=== PATIENT | male | born 1935 | race Caucasian/White ===

== ENCOUNTER 2019-05-17 20:47 | Observation (INO) ==
--- NOTE | 2019-05-17 20:59 | Emergency Department Note ---
Disposition Clinical Impression: Elevated creatine kinase, Tachycardia Disposition: Home, Self-Care Condition: Good Instructions: Hypotension (ED) Referrals: NONE,PCP [Primary Care Provider] - Time of Disposition: 22:22 General Adult HPI - General Stated complaint: Low BP/Rhabdo? Time Seen by Provider: 05/17/19 20:58 Source: patient Mode of arrival: ambulatory Limitations: no limitations Nursing Notes Reviewed: Yes Vital Signs Reviewed: Yes - History of Present Illness HPI Narrative: Male patient presenting to emergency department complaining of a generalized weakness and hypotension at home. He was noted to be in the 80s systolic at home per the son. Patient states he is otherwise feeling weak. He has no other complaints. Patient does have a history of an TX with no stents placed however he also has a history of DVT with 2 IVC filters, And a bleeding gastric ulcer that he underwent an open laparoscopy to fix several years ago. He is not cu rrently on blood thinners. He reports no other significant past history other than hypertension that he takes blood pressure medication for only if his systolic numbers greater than 110. He does not take this frequently. He reportedly once or twice a month. States the last time was several days ago. Patient reports no history of atrial fibrillation however on the telemetry strip in the room he does appear to have frequent episodes of ectopic beats with an underlying sinus rhythm. Patient denies any chest pain. Denies any shortness of breath. Denies any feelings of palpitations. He denies any actual syncope. Of note last night middle the night he states he did slide out of his bed. He states he did not fall out of his bed he did gradually slide to the floor. He then laid on the carpet went back to sleep. He was able to get himself up this morning and was going about his normal business whenever his son was talking to them and the patient brought up that he did sleep in the floor last night. - Related Data Allergies Allergy/AdvReac Type Severity Reaction Status Date / Time No Known Allergies Allergy Verified 05/17/19 21:00 All systems ED: reviewed and negative except as stated. Review of Systems: As Per HPI Constitutional: Reports: weakness. Denies: fever, chills ENT ED: Denies: congestion Cardiovascular: Denies: chest pain, palpitations, syncope Respiratory: Denies: cough, dyspnea, sputum production Gastrointestinal: Denies: abdominal pain, nausea, vomiting, diarrhea, hematemesis, melena, hematochezia Genitourinary: Denies: urgency, dysuria, frequency Musculoskeletal: Denies: back pain, neck pain Neurological: Reports: weakness. Denies: headache Past Medical History - Past Medical History Attestation: Yes The following information was validated with the patient. Source: patient Medical history: Reports: hyperlipidemia, hypertension, myocardial infarction Psychiatric history: Reports: no psych history - Social History Smoking Status: Former smoker Smokeless Tobacco Status: No Alcohol use: Reports: none Drug use: Reports: none Physical Exam - General Limitations: no limitations General appearance: alert, in no apparent distress - Head Head exam: atraumatic, normocephalic, normal inspection - Eye Eye exam: Present: normal appearance, PERRL, EOMI - ENT ENT exam: normal exam, normal oropharynx, mucous membranes moist - Neck Neck exam: Present: normal inspection, full ROM, trachea midline - Chest Chest inspection: Present: normal inspection, symmetric chest wall rise - Respiratory Respiratory exam: Present: normal lung sounds bilaterally. Absent: respiratory distress, accessory muscle use - Cardiovascular Cardiovascular exam: Present: regular rate, normal rhythm, normal heart sounds - Abdominal Exam Abdominal exam: Present: soft, Non-Tender. Absent: tenderness, distention, guarding, rebound, rigidity, organomegaly, Vergara's sign, Rovsing's sign, tenderness at McBurney's Point - Extremities Exam Extremities exam: Present: normal inspection, full ROM, normal capillary refill. Absent: tenderness, pedal edema, calf tenderness - Back Exam Back exam: Present: normal inspection, full ROM. Absent: tenderness - Neurological Exam Neurological exam: Present: alert, oriented X3 - Psychiatric Psychiatric exam: Present: normal affect, normal mood - Skin Skin exam: Present: warm, dry, intact, normal color. Absent: rash, cyanosis, diaphoresis Course Course Narrative: Patient mentating appropriately here. No neurologic deficits noted. He is n ormotensive while in the emergency department here. We will get a basic lab workup on patient as well as a CK secondary to his laying in the floor last night. Again he is mentating appropriately with no complaints whatsoever. Lung sounds are clear heart tones are normal. Abdomen is soft nontender nondistended does have what appears to be a surgical mass that is mobile in his upper abdomen just right of midline just right side of his scar. I did review the previous CT of his abdomen which showed IVC filters. One was located in the hepatic IVC and one was infrarenal. - Reevaluation(s) Reevaluation #1: I went back to reevaluate the patient and discussed that his creatinine is mildly elevated and ask if he will be able to give us a urine sample he states that he is feeling weak again. He was in a tachycardic rhythm at a rate of 190 at this time. This did appear to be wide complex and regular. States he was feeling very weak and dizzy. We did order procainamide however by the time that it to come to the emergency department his tachycardia did break. Time: 22:41 Reevaluation #2: Patient's heart rate continued to fluctuate. He had some sustained tachycardia so procainamide was started. We did provide him with a liter of fluid the same time. We did admit the patient to the hospitalist. Dr Ramirez accepted patient stable condition. Time: 01:50 - Consultations Consultation #1: I spoke with Dr Sanchez. He states he does not believe that he would like the patient at this time with procainamide. He states he will see them in the morning. Time: 23:30 Vital Signs Temperature 98.1 F 05/17/19 20:56 Pulse Rate 62 05/17/19 20:56 Respiratory Rate 20 05/17/19 20:56 Blood Pressure 111/64 05/17/19 20:56 O2 Sat by Pulse Oximetry 97 05/17/19 20:56 Temperature 98.1 F 05/17/19 20:56 Pulse Rate 98 05/18/19 01:26 Respiratory Rate 16 05/18/19 01:26 Blood Pressure 108/77 05/18/19 01:26 O2 Sat by Pulse Oximetry 100 05/18/19 01:26 Oxygen Delivery Oxygen Delivery Nasal Cannula Medical Decision Making - Medical Records Medical records reviewed: Yes I reviewed the patient's medical records. - Lab Data Lab results reviewed: Yes I reviewed the patient's lab results. Result diagrams: 05/17/19 21:03 05/17/19 21:03 Lab Results 05/17/19 05/17/19 Range/Units 21:03 21:03 WBC 13.5 H (4.3-11.1) K/mcL RBC 4.34 (4.19-5.50) M/mcL Hgb 14.4 (12.9-16.9) g/dL Hct 42.8 (37.5-50.1) % MCV 98.6 (83.0-100.0) fL MCH 33.2 (28.0-33.3) pg MCHC 33.6 (31.6-35.5) g/dL RDW 13.7 (11.5-14.5) % Plt Count 135 L (140-400) K/mcL MPV 11.2 (9.4-12.4) fL Immature Gran % 0.4 (0-4) % Seg Neutrophils % 78.4 % Lymphocytes % 10.8 % Monocytes % 9.8 % Eosinophils % 0.4 % Basophils % 0.2 % Neutrophils # 10.6 H (1.6-8.9) K/mcL Lymphocytes # 1.5 (0.6-4.6) K/mcL Monocytes # 1.3 (0.0-1.3) K/mcL Eosinophils # 0.1 (0.0-0.6) K/mcL Basophils # 0.0 (0.0-0.2) K/mcL Sodium 140 (136-145) mEq/L Potassium 4.0 (3.5-5.1) mEq/L Chloride 104 (98-107) mEq/L Carbon Dioxide 29 (23-29) mEq/L BUN 23 (8-23) mg/dL Creatinine 1.30 (0.70-1.30) mg/dL Est GFR ( Amer) > 60 (> 60) Est GFR (Non-Af Amer) 53 L (> 60) BUN/Creatinine Ratio 18 (6-26) Glucose 116 H (70-105) mg/dL Calculated Osmolality 295 (280-300) Calcium 9.1 (8.6-10.3) mg/dL Magnesium 1.9 (1.6-2.6) mg/dL Total Bilirubin 0.9 (0.3-1.0) mg/dL AST 25 (13-39) Units/L ALT 16 (7-52) Units/L Alkaline Phosphatase 53 (34-104) Units/L Creatine Kinase 475 H (30-223) Units/L Troponin I 0.03 (< 0.04) ng/mL Serum Total Protein 6.4 (6.4-8.9) g/dL Albumin 3.9 (3.5-5.7) g/dL Globulin 2.5 (2.4-3.5) g/dL Albumin/Globulin Ratio 1.6 (1.1-2.2) - Radiology Data Radiology results reviewed: Yes I reviewed the patient's radiology results. Chest X-Ray 05/17/19 21:06 IMPRESSION: No acute process. D/ / William Rolon MD / William Rolon MD Interpreting Provider: William Rolon MD - EKG Data EKG #1 EKG attestation: Yes I reviewed and interpreted this EKG. EKG results narrative: Normal sinus rhythm at a rate of 73. AL interval is 156. QRS duration is 114. QTC is 413. QTC is 456. No signs of acute ischemia. Poor R-wave progression. 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 You can see the slurring of the uterus complex however comparing with the previous EKG does look like he has some RSR prime. This is appear to be more of a ventricular conduction delay as opposed to a true WPW. No other significant changes from previous EKG dated 05/27/2018.
[2019-05-17] MEDS ORDERED: 0.9 % Sodium Chloride 1,000 ML IVC STA (21:10)
[2019-05-17 21:24] LABS: Basophils % 0.2 %; Eosinophils # 0.1 K/mcL (0.0-0.6); Eosinophils % 0.4 %; Hematocrit 42.8 % (37.5-50.1); Hemoglobin 14.4 g/dL (12.9-16.9); Immature Granulocytes % 0.4 % (0-4); Lymphocytes # 1.5 K/mcL (0.6-4.6); Lymphocytes % 10.8 %; Mean Corpuscular HGB Conc 33.6 g/dL (31.6-35.5); Mean Corpuscular Hemoglobin 33.2 pg (28.0-33.3); Mean Corpuscular Volume 98.6 fL (83.0-100.0); Mean Platelet Volume 11.2 fL (9.4-12.4); Monocytes # 1.3 K/mcL (0.0-1.3); Monocytes % 9.8 %; Neutrophils # 10.6 K/mcL (1.6-8.9); Platelet Count 135 K/mcL (140-400); Red Blood Count 4.34 M/mcL (4.19-5.50); Red Cell Distribution Width 13.7 % (11.5-14.5); Segmented Neutrophils % 78.4 %; White Blood Count 13.5 K/mcL (4.3-11.1)
[2019-05-17 21:46] LABS: Alanine Aminotransferase 16 Units/L (7-52); Albumin 3.9 g/dL (3.5-5.7); Albumin/Globulin Ratio 1.6 (1.1-2.2); Alkaline Phosphatase 53 Units/L (34-104); Aspartate Amino Transferase 25 Units/L (13-39); BUN/Creatinine Ratio 18 (6-26); Bilirubin,Total 0.9 mg/dL (0.3-1.0); Blood Urea Nitrogen 23 mg/dL (8-23); Calcium 9.1 mg/dL (8.6-10.3); Carbon Dioxide 29 mEq/L (23-29); Chloride 104 mEq/L (98-107); Creatine Kinase 475 Units/L (30-223); Globulin 2.5 g/dL (2.4-3.5); Glucose 116 mg/dL (70-105); Osmolality,Calculated 295 (280-300); Sodium 140 mEq/L (136-145); Total Protein 6.4 g/dL (6.4-8.9); Troponin I 0.03 ng/mL (< 0.04); eGFR For African Americans > 60 (> 60); eGFR For Non-African Americans 53 (> 60)
[2019-05-17] MEDS ORDERED: D5 IVPB ONE ×3 (22:36→23:00)
[2019-05-17] MEDS ORDERED: WATER IVPB ONE ×3 (22:36→23:00)
[2019-05-17] MEDS ORDERED: PROCAINAMIDE IVPB ONE ×3 (22:36→23:00)
[2019-05-17 23:41] LABS: Magnesium 1.9 mg/dL (1.6-2.6)
[2019-05-18] MEDS ORDERED: 0.9 % Sodium Chloride 1,000 ML ONE (01:07)
--- NOTE | 2019-05-18 03:37 | Emergency Department Note ---
Disposition Clinical Impression: Elevated creatine kinase, Tachycardia Disposition: Home, Self-Care Condition: Good Time of Disposition: 03:43 General Adult HPI - General Chief complaint: ED Dizziness Stated complaint: Low BP/Rhabdo? Time Seen by Provider: 05/17/19 20:58 Source: patient Mode of arrival: ambulatory Limitations: no limitations Nursing Notes Reviewed: Yes Vital Signs Reviewed: Yes - History of Present Illness Pain Scale: 0 - Related Data Allergies Allergy/AdvReac Type Severity Reaction Status Date / Time No Known Allergies Allergy Verified 05/17/19 21:00 Constitutional: Reports: weakness. Denies: fever, chills ENT ED: Denies: congestion Cardiovascular: Denies: chest pain, palpitations, syncope Respiratory: Denies: cough, dyspnea, sputum production Gastrointestinal: Denies: abdominal pain, nausea, vomiting, diarrhea, hematemesis, melena, hematochezia Genitourinary: Denies: urgency, dysuria, frequency Musculoskeletal: Denies: back pain, neck pain Neurological: Reports: weakness. Denies: headache Past Medical History - Past Medical History Medical history: Reports: hyperlipidemia, hypertension, myocardial infarction Psychiatric history: Reports: no psych history - Social History Smoking Status: Former smoker Smokeless Tobacco Status: No Alcohol use: Reports: none Drug use: Reports: none Physical Exam - General Limitations: no limitations General appearance: alert, in no apparent distress Course Vital Signs Temperature 98.1 F 05/17/19 20:56 Pulse Rate 62 05/17/19 20:56 Respiratory Rate 20 05/17/19 20:56 Blood Pressure 111/64 05/17/19 20:56 O2 Sat by Pulse Oximetry 97 05/17/19 20:56 Temperature 98.1 F 05/17/19 20:56 Pulse Rate 106 05/18/19 02:39 Respiratory Rate 98 05/18/19 02:39 Blood Pressure 108/75 05/18/19 02:39 O2 Sat by Pulse Oximetry 99 05/18/19 02:39 Oxygen Delivery Oxygen Delivery Nasal Cannula Medical Decision Making - Medical Records Medical records reviewed: Yes I reviewed the patient's medical records. - Lab Data Lab results reviewed: Yes I reviewed the patient's lab results. Result diagrams: 05/17/19 21:03 05/17/19 21:03 Lab Results 05/17/19 05/17/19 Range/Units 21:03 21:03 WBC 13.5 H (4.3-11.1) K/mcL RBC 4.34 (4.19-5.50) M/mcL Hgb 14.4 (12.9-16.9) g/dL Hct 42.8 (37.5-50.1) % MCV 98.6 (83.0-100.0) fL MCH 33.2 (28.0-33.3) pg MCHC 33.6 (31.6-35.5) g/dL RDW 13.7 (11.5-14.5) % Plt Count 135 L (140-400) K/mcL MPV 11.2 (9.4-12.4) fL Immature Gran % 0.4 (0-4) % Seg Neutrophils % 78.4 % Lymphocytes % 10.8 % Monocytes % 9.8 % Eosinophils % 0.4 % Basophils % 0.2 % Neutrophils # 10.6 H (1.6-8.9) K/mcL Lymphocytes # 1.5 (0.6-4.6) K/mcL Monocytes # 1.3 (0.0-1.3) K/mcL Eosinophils # 0.1 (0.0-0.6) K/mcL Basophils # 0.0 (0.0-0.2) K/mcL Sodium 140 (136-145) mEq/L Potassium 4.0 (3.5-5.1) mEq/L Chloride 104 (98-107) mEq/L Carbon Dioxide 29 (23-29) mEq/L BUN 23 (8-23) mg/dL Creatinine 1.30 (0.70-1.30) mg/dL Est GFR ( Amer) > 60 (> 60) Est GFR (Non-Af Amer) 53 L (> 60) BUN/Creatinine Ratio 18 (6-26) Glucose 116 H (70-105) mg/dL Calculated Osmolality 295 (280-300) Calcium 9.1 (8.6-10.3) mg/dL Magnesium 1.9 (1.6-2.6) mg/dL Total Bilirubin 0.9 (0.3-1.0) mg/dL AST 25 (13-39) Units/L ALT 16 (7-52) Units/L Alkaline Phosphatase 53 (34-104) Units/L Creatine Kinase 475 H (30-223) Units/L Troponin I 0.03 (< 0.04) ng/mL Serum Total Protein 6.4 (6.4-8.9) g/dL Albumin 3.9 (3.5-5.7) g/dL Globulin 2.5 (2.4-3.5) g/dL Albumin/Globulin Ratio 1.6 (1.1-2.2) - Radiology Data Radiology results reviewed: Yes I reviewed the patient's radiology results. Chest X-Ray 05/17/19 21:06 IMPRESSION: No acute process. D/ / William Rolon MD / William Rolon MD Interpreting Provider: William Rolon MD - EKG Data EKG #1 EKG attestation: Yes I reviewed and interpreted this EKG. EKG results narrative: EKG shows a normal sinus rhythm with ventricular rate of 73. 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 Minimal ST elevation in V1 through V3. No significant change from prior EKG dated 05/27/2018. EKG #2 EKG attestation: Yes I reviewed and interpreted this EKG. EKG results narrative: Repeat EKG obtained at 00:58 shows shows a wide QRS tachycardia with ventricular rate of 183. Right bundle branch block. Critical Care Time Critical Care Time: Yes Total Critical Care Time: 60 Attestation: Critical care performed: Time is exclusive of separately billable procedures. Time includes: direct patient care, patient reassessment, coordination of patient care, interpretation of data (laboratory data, radiology data, and respiratory data), review of patient's medical records, medical consultation and documentation of patient care. Procedures included in critical care time: Procedures excluded from critical care time: Attestation Statement - Attestation Attestation: I, Reddy Beck MD, personally evaluated this patient and discussed their management with the resident physician. I reviewed the resident's note and agree with the documented findings, medical decision making, and plan of care. I reviewed the residents documentation and agree with the residents assessment and plan of care. I have personally had face to face time with the patient. I personally supervised and was present for the conn/critical portions of the following procedures completed by the resident: EKG interpretation. 84-year-old male presents to the emergency department with a complaint of weakness and low blood pressure. Patient apparently started to get out of bed during the night last night and was very weak. He slid from the bed down onto the carpeted floor. He was so weak he could not get up so he just rolled over and went to sleep on the floor. He slipped on the floor the rest the night and then this morning was able to get up without difficulty. He later told his son about this episode and they checked his blood pressure at home and it was low. He was taken to an urgent care and they recommended he come here because they were concerned about rhabdomyolysis. Patient denies any pain. No chest pain or shortness of breath. He denies hitting his head. No injury from sliding down onto the floor. Patient does complain that for the past few days he has been having episodes of suddenly becoming very weak and dizzy. Son also reports that his blood pressure has been running low for the past few days. He has a history of hypertension and has blood pressure medication but states he only takes the medication of his blood pressure is higher than 110 systolic. The last time he took the medication was to 3 days ago. He states he does not have to take it very often. On examination patient is a well-developed well-nourished well-appearing elderly male in no acute distress. He is alert and oriented 3. There is no cyanosis or diaphoresis. Chest is nontender to palpation. Breath sounds are clear and equal bilaterally. Heart regular with frequent ectopy. Abdomen soft and nontender with normal bowel sounds. No pedal edema. Labs reviewed. EKG shows a normal sinus rhythm with ventricular rate of 73. 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 Minimal ST elevation in V1 through V3. No significant change from prior EKG dated 05/27/2018. Chest x-ray negative. Just as we were going back to reevaluate the patient and talked to him about possibly going home when we went into the room the patient suddenly became tachycardic with a heart rate of 180-190. He complained of feeling very weak an d dizzy and faint. No pain with the episode. This lasted probably less than a minute and resolved spontaneously. Because of the suggestion of WPW on the initial EKG we ordered procainamide IV but then discussed the case with the french teacher government operations consultant, Dr. Sanchez, and he recommended not giving the procainamide at this time. He recommended just admitting the patient for observation and cardiology will consult on the patient in the morning. Later however the patient started having the intermittent runs of tachycardia again and then developed a sustained tachycardia with a rate of 180s to 190s. At that point we went ahead and loaded him with procainamide IV with resolution of the tachycardi a. The hospitalist, Dr. Ramirez, was consulted and accepted admission of the patient.
[2019-05-18 03:39] LABS: Bilirubin,Urine Negative (Negative); Blood,Urine Negative (Negative); Clarity,Urine Clear (Clear); Color,Urine Yellow (Yellow); Glucose,Urine (UA) Normal (Normal); Ketones,Urine Negative (Negative); Leukocyte Esterase,Urine Negative (Negative); Nitrite,Urine Negative (Negative); PH,Urine 5.5 pH Units (5.0-8.0); Protein,Urine Trace mg/dL (Neg-Trace); Specific Gravity,Urine 1.022 (1.010-1.025); Urobilinogen,Urine Normal (Normal)
[2019-05-18] MEDS ORDERED: Naloxone 0.4 MG/ML INJ IVP PRN (04:48)
[2019-05-18] MEDS: 0.9 % Sodium Chloride 1,000 ML IVC SCH ×2 (05:17→13:22)
--- NOTE | 2019-05-18 05:24 | Internal Med History&Physical ---
Date of Encounter: 05/18/19 Time of Encounter: 04:44 Internal Medicine - H&P: HPI Chief complaint: Dysrhythmia Admitted From: Emergency Dept Plans for Post Hospital Care: Home History of present illness: Mr. Cm is a 84 year old male Patient presented to the emergency department after experiencing weakness at home. He apparently fell out of bed last night, woke up on the floor he initially was unable to get up but eventually was able to after several hours. He says that he does not recall hitting his head but he may have had some kind of cardiac arrhythmia at the time. He has not quite remember. His son had learned that he had spent the night on the floor, and after checking his blood pressure, he was found to have a systolic of 80. They initially went to an urgent care but then came to the emergency department after there were concerns of possible rhabdomyolysis. Initial vital signs in the emergency department: Temperature 98.1, pulse 62, respiratory rate 20, blood pressure 111/64, O2 saturation 97% on room air. CBC: White count 13.5, hemoglobin 14.4, platelets 135. BMP unremarkable. Creatinine kinase 475 Liver function tests within normal limits Initial troponin 0.03 Urinalysis negative for infection Chest x-ray showed no acute process EKG 1: Sinus rhythm, heart rate 73, QTC 456 ms. EKG machine read out ventricular preexcitation, [id number]-[id number]-[id number]. Though on my review, the NE interval is not less than 0.12, and the delta waves are difficult to distinguish if they are present. EKG 2: Wide QRS tachycardia, heart rate 183, QTC 529 ms. EKG 3: Sinus tachycardia, rate 102, QTC 407 ms. In the emergency department patient received a liter of IV fluids. They initially were going to send the patient home, but he developed an arrhythmia as indicated in the EKG above. He was given a dose of procainamide, and cardiology was contacted. Initial recommendations from cardiology were to hold off on procainamide, and admit the patient for observation. But the patient developed the wide QRS tachycardia and patient was given IV procainamide which helped resolve his tachycardia. He was then admitted to the hospital for further observation. Upon my evaluation, patient is resting comfortably in the hospital bed in no acute distress. He denies chest pain, abdominal pain, nausea, vomiting, diarrhea constipation. He has never had any episodes like this before. He denies taking regular home medications. He denies previous cardiac history. He is a full code. Past Med Surg Social Fam HX - Past Medical History Medical history: hyperlipidemia, hypertension, myocardial infarction Additional medical history: low blood pressure at times. Psychiatric history: no psych history - Past Surgical History Additional surgical history: BACK SX. abd surgery-bleeding ulcer. IVC filters x 2. - Social History Smoking Status: Former smoker Smokeless Tobacco Status: No Alcohol use: none Drug use: none Internal Medicine - H&P: Meds Unable To Obtain [Unable to Obtain] 05/18/19 [History] Allergy/AdvReac Type Severity Reaction Status Date / Time No Known Allergies Allergy Verified 05/17/19 21:00 All Systems PM: A 10-system review of systems was performed and is negative for pertinent findings except as documented above in the HPI. - Constitutional Vitals: Temp Pulse Resp BP Pulse Ox 98.1 F 91 18 106/75 93 05/18/19 04:04 05/18/19 04:47 05/18/19 04:47 05/18/19 04:47 05/18/19 04:47 Exam: - General appearance: Present: cooperative, A&O X 3, pleasant, no acute distress, answers questions appropriately Exam: - Head Head exam: Present: normal inspection - Eye Eye exam: Present: EOMI, normal appearance - Respiratory Respiratory exam: Present: CTAB. Absent: rales, respiratory distress, rhonchi, wheezes - Cardiovascular Cardiovascular exam: Present: Irregularly irregular Absent: diastolic murmur, systolic murmur - GI/Abdominal GI/Abdominal exam: Present: normal bowel sounds, soft. Absent: tenderness - Extremities Exam Extremities exam: Present: warm, radial pulses palpable and symmetrical. Absent: calf tenderness, pedal edema, tenderness - Neurological Exam Neurological exam: Present: no focal deficits, strengths equal and symetr throughout. Absent: motor sensory deficit, facial droop, speech deficit - Skin Skin exam: Present: Rash to the chest, blanchable with palpation. Not itchy. Internal Med - H&P Results - Labs CBC & Chem 7: 05/17/19 21:03 05/17/19 21:03 Labs: Short CBC 05/17/19 Range/Units 21:03 WBC 13.5 H (4.3-11.1) K/mcL Hgb 14.4 (12.9-16.9) g/dL Hct 42.8 (37.5-50.1) % Plt Count 135 L (140-400) K/mcL Neutrophils # 10.6 H (1.6-8.9) K/mcL BMP 05/17/19 21:03 Sodium 140 Potassium 4.0 Chloride 104 Carbon Dioxide 29 BUN 23 Creatinine 1.30 Glucose 116 H Calcium 9.1 Cardiac Enzymes 05/17/19 Range/Units 21:03 Troponin I 0.03 (< 0.04) ng/mL Liver Function 05/17/19 Range/Units 21:03 Total Bilirubin 0.9 (0.3-1.0) mg/dL AST 25 (13-39) Units/L ALT 16 (7-52) Units/L Alkaline Phosphatase 53 (34-104) Units/L Albumin 3.9 (3.5-5.7) g/dL Urine 05/18/19 Range/Units 03:30 Urine Color Yellow (Yellow) Urine Clarity Clear (Clear) Urine pH 5.5 (5.0-8.0) pH Units Ur Specific [place] 1.022 (1.010-1.025) Urine Protein Trace (Neg-Trace) mg/dL Urine Glucose (UA) Normal (Normal) mg/dL - Impressions ITS Impressions Chest X-Ray 05/17/19 21:06 IMPRESSION: No acute process. D/ / William Rolon MD / William Rolon MD Interpreting Provider: William Rolon MD - Assessment and Plan (1) Dysrhythmia Current Visit: Yes Status: Acute Assessment and plan: During patient's emergency department visit he went into a wide complex tachycardia with a rate of 183. Cardiology was consulted because the first EKG did mention possible Ctene-Kbulaqyxo-Lhhxi syndrome. Initially recommended to hold off on procainamide however this was still given as patient sustained in the 180s and was symptomatic. He did not have chest pain, but says that he did feel the palpitations. He is never had symptoms like this before. He will be observed in the ICU as this is the only unit that can administer the procainamide if needed. Continue cardiac telemetry Repeat troponin Cardiology consult, follow-up recommendations. May need to repeat procainamide if patient's dysrhythmia returns. Qualifiers: Arrhythmia type: ventricular tachycardia Qualified Code(s): I47.2 - Ventricular tachycardia (2) Elevated creatine kinase Current Visit: Yes Status: Acute Assessment and plan: Likely secondary to sleeping on the floor. CK was 475 in the emergency department. He did receive 1 L of IV fluids, and was started on IV maintenance fluids. Continue IV fluid hydration Continue to monitor creatine kinase (3) Skin rash Current Visit: Yes Status: Acute Assessment and plan: Blanchable skin erythema to the chest in areas of where the defibrillator pads have been placed when he was in the emergency department. The erythema is not pruritic. On second review, the redness is improving and seems to be resolving without intervention. Continue to monitor (4) DVT prophylaxis Current Visit: Yes Status: Acute Assessment and plan: SCDs - Time Spent With Patient Total time spent is greater than 50% in coordination of care (as documented) at patient's floor/unit and/or counseling patient: Greater than 35 minutes
[2019-05-18 05:37] LABS: Hematocrit 38.8 % (37.5-50.1); Mean Corpuscular HGB Conc 33.5 g/dL (31.6-35.5); Mean Corpuscular Hemoglobin 33.4 pg (28.0-33.3); Mean Corpuscular Volume 99.7 fL (83.0-100.0); Mean Platelet Volume 11.8 fL (9.4-12.4); Platelet Count 123 K/mcL (140-400); Red Blood Count 3.89 M/mcL (4.19-5.50); Red Cell Distribution Width 13.9 % (11.5-14.5); White Blood Count 8.8 K/mcL (4.3-11.1)
[2019-05-18 05:56] LABS: BUN/Creatinine Ratio 14 (6-26); Blood Urea Nitrogen 18 mg/dL (8-23); Calcium 8.1 mg/dL (8.6-10.3); Carbon Dioxide 25 mEq/L (23-29); Chloride 108 mEq/L (98-107); Glucose 107 mg/dL (70-105); Osmolality,Calculated 294 (280-300); Potassium 3.8 mEq/L (3.5-5.1); Sodium 141 mEq/L (136-145); eGFR For African Americans > 60 (> 60); eGFR For Non-African Americans 55 (> 60)
[2019-05-18 10:10] LABS: VBG HCO3 25 mEq/L (21-27); VBG PCO2 49 mmHg (41-51); VBG PH 7.32 pH Units (7.32-7.42); VBG PO2 61 mmHg (25-50)
[2019-05-18 10:28] LABS: Magnesium 1.8 mg/dL (1.6-2.6); Phosphorous 2.5 mg/dL (2.7-4.5)
--- NOTE | 2019-05-18 11:33 | Cardiology Consult Note ---
<Tl Umaña R - Last Filed: 05/18/19 13:27> Date of Encounter: 05/18/19 Time of Encounter: 11:30 Assessment and Plan (1) Tachyarrhythmia Current Visit: Yes Status: Acute Consulted for tachyarrhythmia in ED that resolved with IV procainamide in ED. SR with frequent ectopy on tele. Will start low dose BB. Per pt, no hx of arrhythmia. ECG appears to be SVT with aberrancy. Reviewed with EP, not WPW. Currently SR with ectopy--PVCs and PACs. Will start low dose BB. TTE to evaluate structure and function. Will consider inpt ischemic evaluation pending TTE findings. Continue to follow. (2) CAD (coronary artery disease) Current Visit: Yes Status: Acute Reports hx of OH and PTCA ~20 years ago. Denies chest pain. Negative troponins. Will start ASA, Statin, BB. Qualifiers: Coronary Disease-Associated Artery/Lesion type: quechan artery [place] vs. transplanted heart: quechan heart Associated angina: without angina Qualified Code(s): I25.10 - Atherosclerotic heart disease of quechan coronary artery without angina pectoris Discussion w patient/family: The assessment and plan as outlined above was discussed with the patient and/or family members who expressed understanding and agreement. All questions were answered. Thank you for involving us in the care of your patient. Please call with any questions. I will discuss all the above with Dr. Yoder and make changes as necessary. History of Present Illness Consult date: 05/18/19 Consult reason: tachyarrhythmia Chief complaint: weakness History of present illness: Mr. Cm is a 84 year old male with PMH HTN, HLD, [place] with reported PTCA hx ~20 years ago that presented to ED after experiencing weakness at home. Reportedly fell out of bed last night, woke up on the floor he initially was unable to get up. Found to be hypotensive with systolic 80s. Initially went to urgent care, but came to ED after there were concerns of possible rhabdomyolysis. Pt was noted to have a tachyarrhythmia in ED, resolved with IV Procainamide. Cardiology consulted for further recs. He denies chest pain, palpitations or dyspnea. No prior arrhythmia hx. Troponins negative x 2. Past Med Surg Social Fam HX - Past Medical History Medical history: hyperlipidemia, hypertension, myocardial infarction Additional medical history: low blood pressure at times. Psychiatric history: no psych history - Past Surgical History Additional surgical history: BACK SX. abd surgery-bleeding ulcer. IVC filters x 2. - Social History Smoking Status: Former smoker Smokeless Tobacco Status: No Alcohol use: none Drug use: none Medications and Allergies Carvedilol [Coreg] 6.25 mg PO BID PRN 05/18/19 [History] Allergy/AdvReac Type Severity Reaction Status Date / Time No Known Allergies Allergy Verified 05/17/19 21:00 All Systems Review: The remainder of the systems were reviewed and are negative - Constitutional Constitutional: weakness Physical Examination Vital Signs, Last 4 Hours Temp Pulse Resp BP Pulse Ox 05/18/19 11:08 97.5 F L 05/18/19 10:42 88 16 111/73 96 05/18/19 09:00 88 18 117/82 96 05/18/19 08:14 98.2 F 05/18/19 08:06 92 18 119/87 94 Vital Signs Temp Pulse Resp BP Pulse Ox 05/18/19 11:08 97.5 F L 05/18/19 10:42 88 16 111/73 96 05/18/19 09:00 88 18 117/82 96 05/18/19 08:14 98.2 F 05/18/19 08:06 92 18 119/87 94 05/18/19 06:00 85 15 105/68 94 05/18/19 04:47 91 18 106/75 93 05/18/19 04:07 95 05/18/19 04:04 98.1 F 96 19 114/68 98 05/18/19 03:57 94 05/18/19 02:39 106 98 108/75 99 05/18/19 01:26 98 16 108/77 100 05/18/19 01:20 97 21 97/73 97 05/18/19 01:15 99 21 99/73 99 05/18/19 01:12 100 21 106/72 98 05/18/19 01:02 100 18 96/72 98 05/17/19 23:59 99 17 106/72 95 05/17/19 21:32 74 18 103/73 97 05/17/19 20:56 98.1 F 62 20 111/64 97 Intake and Output 05/17/19 05/18/1905/18/19 23:59 07:59 15:59 Intake Total 1251.5 / 1251.5 Output Total 210 / 210 0 / 210 Balance 1041.5 / 1041.5 0 / 1041.5 Intake: IV Fluids 1251.5 / 1251.5 0.9 % Sodium Chloride 1,000 ML 1000 / 1000 @ 999 mls/hr IVC .Q1H1M STA Rx# :[id number] Pronestyl 750 MG In Dextrose 5% 251.5 / 251.5 250 ML @ 501.051 mls/hr IVPB ONCE ONE Rx#:[id number] Oral 0 / 0 Output: Urine 210 / 210 0 / 210 Other: Stool Size Moderate Stool Consistency loose Stool Color Brown # Voids 1 Weight 68.719 kg 67.6 kg Blood Glucose* 91 Patient Weight 05/18/19 23:59 Weight 67.6 kg General: Conversant, No Apparent Distress HEENT: Atraumatic, Normocephaly, Mucus Membranes Moist Neck: No JVD, Normal carotid pulses Cardiac: Reg Rate and Rhythm, Normal S1 and S2, No Murmur Lungs: Normal Breath Sounds, No Wheeze, Rales, Rhonchi Neuro: Alert and responsive, No focal deficits noted Abdomen: Soft, Non-Tender Skin: No rashes noted on visualized skin Musculoskeletal: No Chest Wall Tenderness Extremities: No Clubbing, No Cyanosis, No Edema, Normal Pulses Results 05/18/19 05:17 05/18/19 05:17 Lab Results 05/17/19 05/17/19 05/18/19 21:03 21:03 05:17 WBC 13.5 H Hgb 14.4 Hct 42.8 Plt Count 135 L Sodium 140 141 Potassium 4.0 3.8 Chloride 104 108 H Carbon Dioxide 29 25 BUN 23 18 Creatinine 1.30 1.25 Glucose 116 H 107 H Calcium 9.1 8.1 L Magnesium 1.9 Total Bilirubin 0.9 AST 25 ALT 16 Alkaline Phosphatase 53 Troponin I 0.03 05/18/19 05/18/19 05/18/19 05:17 05:20 09:48 WBC 8.8 Hgb 13.0 Hct 38.8 Plt Count 123 L Sodium Potassium Chloride Carbon Dioxide BUN Creatinine Glucose Calcium Magnesium 1.8 Total Bilirubin AST ALT Alkaline Phosphatase Troponin I < 0.03 Short CBC 05/18/19 05/17/19 Range/Units 05:17 21:03 WBC 8.8 13.5 H (4.3-11.1) K/mcL Hgb 13.0 14.4 (12.9-16.9) g/dL Hct 38.8 42.8 (37.5-50.1) % Plt Count 123 L 135 L (140-400) K/mcL Neutrophils # 10.6 H (1.6-8.9) K/mcL BMP 05/18/19 05/17/19 Range/Units 05:17 21:03 Sodium 141 140 (136-145) mEq/L Potassium 3.8 4.0 (3.5-5.1) mEq/L Chloride 108 H 104 (98-107) mEq/L Carbon Dioxide 25 29 (23-29) mEq/L BUN 18 23 (8-23) mg/dL Creatinine 1.25 1.30 (0.70-1.30) mg/dL Glucose 107 H 116 H (70-105) mg/dL Calcium 8.1 L 9.1 (8.6-10.3) mg/dL Cardiac Enzymes 05/18/19 05/17/19 Range/Units 05:20 21:03 Troponin I < 0.03 0.03 (< 0.04) ng/mL Liver Function 05/17/19 Range/Units 21:03 Total Bilirubin 0.9 (0.3-1.0) mg/dL AST 25 (13-39) Units/L ALT 16 (7-52) Units/L Alkaline Phosphatase 53 (34-104) Units/L Albumin 3.9 (3.5-5.7) g/dL Urine 05/18/19 Range/Units 03:30 Urine Color Yellow (Yellow) Urine Clarity Clear (Clear) Urine pH 5.5 (5.0-8.0) pH Units Ur Specific [place] 1.022 (1.010-1.025) Urine Protein Trace (Neg-Trace) mg/dL Urine Glucose (UA) Normal (Normal) mg/dL Impressions Chest X-Ray 05/17/19 21:06 IMPRESSION: No acute process. D/ / William Rolon MD / William Rolon MD Interpreting Provider: William Rolon MD Active Medications Calcium Carbonate (Tums) 1,000 mg PO TID ANTHONY; Protocol Stop: 11/17/19 09:40 Last Admin: 05/18/19 09:57 Dose: 1,000 mg Documented by: Sodium Chloride (0.9 % Sodium Chloride) 1,000 mls @ 125 mls/hr IVC .Q8H ANTHONY Stop: 11/17/19 05:01 Last Admin: 05/18/19 05:17 Dose: 125 mls/hr Documented by: Naloxone HCl (Narcan) 0.4 mg IVP Q2MPRN PRN PRN Reason: SEE COMMENTS Stop: 11/17/19 04:49 - EKG Interpretation EKG results cardiology: personally reviewed Consult Discharge Plan - Plan Referrals: NONE,PCP [Primary Care Provider] - <Allyson Yoder - Last Filed: 05/18/19 16:04> Date of Encounter: 05/18/19 - Attending Attestation I examined this patient and my medical decision-making was reviewed with the ENGINEERING PRODUCTION WORKER. I agree with the documented findings, disposition and treatment plan as described. Mr. Cm presents with a tachyarrhythmia treated with IV procainamide. Frequent ectopy noted on telemetry. No evidence of WPW. History of remote OH, follows with Dr. Madsen at [facility]. Patient denies recent chest pain symptoms. Recommend an echo to rule out structural heart disease. Will start BB. Will need ischemic workup pending Echo results. Assessment and Plan Discussion w patient/family: The assessment and plan as outlined above was discussed with the patient and/or family members who expressed understanding and agreement. All questions were answered. Thank you for involving us in the care of your patient. Please call with any questions. History of Present Illness History of present illness: Mr. Cm is a 84 year old male All Systems Review: The remainder of the systems were reviewed and are negative Physical Examination Vital Signs, Last 4 Hours Pulse Resp BP 05/18/19 14:04 78 16 112/73 Results 05/18/19 05:17 05/18/19 05:17 Lab Results 05/17/19 05/17/19 05/18/19 21:03 21:03 05:17 WBC 13.5 H Hgb 14.4 Hct 42.8 Plt Count 135 L Sodium 140 141 Potassium 4.0 3.8 Chloride 104 108 H Carbon Dioxide 29 25 BUN 23 18 Creatinine 1.30 1.25 Glucose 116 H 107 H Calcium 9.1 8.1 L Magnesium 1.9 Total Bilirubin 0.9 AST 25 ALT 16 Alkaline Phosphatase 53 Troponin I 0.03 05/18/19 05/18/19 05/18/19 05:17 05:20 09:48 WBC 8.8 Hgb 13.0 Hct 38.8 Plt Count 123 L Sodium Potassium Chloride Carbon Dioxide BUN Creatinine Glucose Calcium Magnesium 1.8 Total Bilirubin AST ALT Alkaline Phosphatase Troponin I < 0.03
--- NOTE | 2019-05-18 12:39 | Event Note ---
Date of Encounter: 05/18/19 Time of Encounter: 12:34 Patient seen and examined face to face. explained and educated on clinical status and diagnosis. Patient currently not complaining of any Chest pain, shortness of breath, fever, chills, abdominal pain, diarrhea. GEn comfortable in no acute distress, neck no lymphadenopathy no JVD. PE heart:RR lung CTA , abdomen nondistended and nontender. Admitted for unstable Tachyarrhythmia with concern for WPW-resolution with IV Procanamide. Cardiology consulted for evaluation for ablation therapy, EPS. Patient will be placed in telemetry and anticipated discharge base if cardiology will proceed with procedure or medicinal approach.
[2019-05-18] MEDS ORDERED: Perflutren Lipid Microsphere 1.3 ML in 0.9 % Sodium Chloride 8.7 ML IVP ONE (17:47)
[2019-05-18] MEDS ORDERED: Ipratropium/Albuterol Neb 3 ML IH PRN (20:22)
[2019-05-18 21:03] LABS: ABG Base Excess -1 mEq/L (-2 to 3); ABG HCO3 23 mEq/L (21-27); ABG Oxygen Saturation 81 % (95-98); ABG PCO2 36 mmHg (35-45); ABG PH 7.42 pH Units (7.32-7.45); ABG PO2 44 mmHg (85-104); ABG TCO2 24 mEq/L (20-26)
[2019-05-19 05:54] LABS: Hematocrit 43.6 % (37.5-50.1); Hemoglobin 14.4 g/dL (12.9-16.9); Mean Corpuscular Hemoglobin 32.4 pg (28.0-33.3); Mean Corpuscular Volume 98.2 fL (83.0-100.0); Mean Platelet Volume 11.4 fL (9.4-12.4); Platelet Count 134 K/mcL (140-400); Red Blood Count 4.44 M/mcL (4.19-5.50); White Blood Count 11.7 K/mcL (4.3-11.1)
[2019-05-19 06:22] LABS: BUN/Creatinine Ratio 15 (6-26); Blood Urea Nitrogen 17 mg/dL (8-23); Calcium 8.8 mg/dL (8.6-10.3); Carbon Dioxide 25 mEq/L (23-29); Chloride 107 mEq/L (98-107); Glucose 101 mg/dL (70-105); Osmolality,Calculated 294 (280-300); Potassium 4.8 mEq/L (3.5-5.1); Sodium 141 mEq/L (136-145); eGFR For African Americans > 60 (> 60); eGFR For Non-African Americans > 60 (> 60)
[2019-05-19 11:20] VITALS: BP 122/87
[2019-05-19] MEDS: 0.9 % Sodium Chloride 1,000 ML IVC SCH ×2 (11:30→11:31)
--- NOTE | 2019-05-19 13:34 | Cardiology Progress Note ---
Date of Encounter: 05/19/19 Time of Encounter: 13:30 Assessment and Plan (1) Tachyarrhythmia Current Visit: Yes Status: Acute Consulted for tachyarrhythmia in ED that resolved with IV procainamide in ED. SR with frequent ectopy on tele. Started low dose BB. Per pt, no hx of arrhythmia. ECG appears to be SVT with aberrancy. Reviewed with EP, not WPW. Currently SR with ectopy--PVCs and PACs. TTE completed LVEF 30-35%. Severe global and segmental left ventricular systolic dysfunction. Severely dilated left ventricle. Mild left ventricular diastolic dysfunction. Normal right ventricular structure and function. Severely dilated left atrium. Moderate aortic regurgitation. Moderate-severe mitral regurgitation. Moderate pulmonary hypertension.Estimated RVSP is 52 mmHg. 4 beat NSVT on tele. Recommend LHC. R/B/A discussed. Pt declines LHC here and requests transfer to [facility] where his volunteer recruitment coordinator Dr. Madsen is. Recommend transfer at pt request for further work-up. Cardiology signing off. Reconsult PRN. (2) CAD (coronary artery disease) Current Visit: Yes Status: Acute Reports hx of OK and PTCA ~20 years ago. Denies chest pain. Negative troponins. Started ASA, Statin, BB. Qualifiers: Coronary Disease-Associated Artery/Lesion type: [place] artery [place] vs. transplanted heart: [place] heart Associated angina: without angina Qualified Code(s): I25.10 - Atherosclerotic heart disease of [place] coronary artery without angina pectoris (3) Cardiomyopathy Current Visit: Yes Status: Acute TTE completed LVEF 30-35%. Severe global and segmental left ventricular systolic dysfunction. Moderate-severe mitral regurgitation. NICMP vs ICMP, but concern for ischemic cause given CAD hx. Recommend LHC. R/B/A discussed. Pt declines LHC here and requests transfer to [facility] where his volunteer recruitment coordinator Dr. Madsen is. Recommend transfer at pt request for further work-up. Continue BB. Would recommend ACEi/ARB, but will not start given anticipation of LHC on transfer. Qualifiers: Cardiomyopathy type: unspecified Qualified Code(s): I42.9 - Cardiomyopathy, unspecified Discussion w patient/family: The assessment and plan as outlined above was discussed with the patient and/or family members who expressed understanding and agreement. All questions were answered. Thank you for involving us in the care of your patient. Please call with any questions. I will discuss all the above with Dr. Yoder and make changes as necessary. Subjective Principal diagnosis: tachyarrhythmia Interval history: No acute complaints this AM. Objective Vital Signs, Last 4 Hours Temp Pulse Resp BP Pulse Ox 05/19/19 11:12 98.2 F 79 16 122/87 96 Vital Signs Temp Pulse Resp BP Pulse Ox 05/19/19 11:12 98.2 F 79 16 122/87 96 05/19/19 06:13 93 05/19/19 06:11 98 F 74 20 122/75 95 05/18/19 21:02 18 89 05/18/19 20:25 90 05/18/19 19:24 97.6 F 73 17 112/82 05/18/19 16:17 97.4 F L 72 14 112/84 94 05/18/19 14:04 78 16 112/73 Intake and Output 05/18/19 05/19/19 05/19/19 23:59 07:59 15:59 Intake Total 765 / 3016.5 0 / 0 Output Total 0 / 210 300 / 300 Balance 765 / 2806.5 -300 / -300 0 / -300 Intake: IV Fluids 765 / 3016.5 0.9 % Sodium Chloride 1,000 ML 765 / 1765 @ 125 mls/hr IVC .Q8H [facility] Rx#: [id number] Oral 0 / 0 0 / 0 Output: Urine 0 / 210 300 / 300 Other: Meal Breakfast Percent of Meal Consumed 0% Stool Size Moderate Stool Consistency loose loose Stool Color Brown Brown # Voids 1 1 # Bowel Movements 1 1 Weight 68.6 kg Patient Weight 05/19/19 23:59 Weight 68.6 kg General: Conversant, No Apparent Distress HEENT: Atraumatic, Normocephaly, Mucus Membranes Moist Neck: No JVD, Normal carotid pulses Cardiac: Reg Rate and Rhythm, Normal S1 and S2, No Murmur Lungs: Normal Breath Sounds, No Wheeze, Rales, Rhonchi Neuro: Alert and responsive, No focal deficits noted Abdomen: Soft, Non-Tender Skin: No rashes noted on visualized skin Musculoskeletal: No Chest Wall Tenderness Extremities: No Clubbing, No Cyanosis, No Edema, Normal Pulses Results 05/19/19 05:27 05/19/19 05:27 Lab Results 05/19/19 05/19/19 05:27 05:27 WBC 11.7 H Hgb 14.4 Hct 43.6 Plt Count 134 L Sodium 141 Potassium 4.8 Chloride 107 Carbon Dioxide 25 BUN 17 Creatinine 1.11 Glucose 101 Calcium 8.8 Short CBC 05/19/19 Range/Units 05:27 WBC 11.7 H (4.3-11.1) K/mcL Hgb 14.4 (12.9-16.9) g/dL Hct 43.6 (37.5-50.1) % Plt Count 134 L (140-400) K/mcL BMP 05/19/19 Range/Units 05:27 Sodium 141 (136-145) mEq/L Potassium 4.8 (3.5-5.1) mEq/L Chloride 107 (98-107) mEq/L Carbon Dioxide 25 (23-29) mEq/L BUN 17 (8-23) mg/dL Creatinine 1.11 (0.70-1.30) mg/dL Glucose 101 (70-105) mg/dL Calcium 8.8 (8.6-10.3) mg/dL Impressions Echocardiogram 05/18/19 13:29 Impressions: LVEF 30-35%. Severe global and segmental left ventricular systolic dysfunction. Severely dilated left ventricle. Mild left ventricular diastolic dysfunction. Normal right ventricular structure and function. Severely dilated left atrium. Moderate aortic regurgitation. Moderate-severe mitral regurgitation. Moderate pulmonary hypertension.Estimated RVSP is 52 mmHg. Left Ventricular Wall Motion: Rest Echo Findings The mid inferior, apical anterior, mid inferior septal, mid anterior lateral, basal anterior lateral, mid inferior lateral, basal anterior septal and basal inferior lateral hansen were hypokinetic. The apex, apical inferior, mid anterior, apical septal, apical lateral and mid anterior septal hansen were akinetic. All other wall segments showed normal motion. Findings: Study Quality * Technically adequate exam. ECG Findings * Sinus tachycardia. Left Ventricle * Severely dilated left ventricle. * * LVEF 30-35%. Severe global and segmental left ventricular systolic dysfunction. * Mild left ventricular diastolic dysfunction. * There is no LV thrombus. * Definity echo contrast was used. Right Ventricle * Normal right ventricular structure and function. Left Atrium * Severely dilated left atrium. Right Atrium * Normal right atrial size. Aortic Valve * Trileaflet aortic valve. * Moderate aortic regurgitation. * No aortic stenosis. Mitral Valve * Mitral valve not well visualized. * Moderate-severe mitral regurgitation. * No mitral stenosis. Tricuspid Valve * Mild tricuspid regurgitation. * No tricuspid stenosis. * Normal tricuspid valve structure. * Moderate pulmonary hypertension.Estimated RVSP is 52 mmHg. * * Estimated RA pressure is 5 mmHg. Pulmonic Valve * Mild pulmonic regurgitation. Aorta * Normally sized aortic root. Pericardium * The pericardium appears normal. IVC * Normal IVC dimensions and inspiratory collapse. Pulmonary Artery * Normal visualized portions of the main pulmonary artery. Chest X-Ray 05/19/19 02:44 IMPRESSION: 1. Worsening pulmonary edema with trace bilateral effusions. 2. COPD. D/ / 05/19/2019 08:08:52 Misty Nava MD / Marylu Seo Interpreting Provider: Misty Nava MD Active Medications Albuterol/Ipratropium (Duoneb) 3 ml IH [id number] PRN PRN Reason: Shortness Of Breath/Wheezing Stop: 11/17/19 20:23 Last Admin: 05/18/19 21:02 Dose: 3 ml Documented by: Calcium Carbonate (Tums) 1,000 mg PO TID ANTHONY; Protocol Stop: 11/17/19 09:40 Last Admin: 05/19/19 09:13 Dose: 1,000 mg Documented by: Metoprolol Tartrate (Lopressor) 12.5 mg PO BID ANTHONY Stop: 11/17/19 13:31 Last Admin: 05/19/19 09:11 Dose: Not Given Documented by: Naloxone HCl (Narcan) 0.4 mg IVP Q2MPRN PRN PRN Reason: SEE COMMENTS Stop: 11/17/19 04:49 - Imaging and Cardiology Echo: report reviewed - EKG Interpretation EKG results cardiology: other (12 hr tele AVG HR) Consult Discharge Plan - Plan Referrals: NONE,PCP [Primary Care Provider] -
--- NOTE | 2019-05-19 15:57 | Discharge Summary ---
- NOTES TO OUTPATIENT PROVIDER Notes to Outpatient Provider: Patient is being transferred to [facility] upon his request for continued ischemic work up Date of Encounter: 05/19/19 Time of Encounter: 15:55 - Discharge Diagnosis (1) Cardiomyopathy Priority: Primary Status: Acute Assessment and Plan: Status post TTE 05/18-EF 30-35%, severe global and segmental left v entricular systolic dysfunction. Ischemic workup was discussed with the patient by the installation and service technician, was originally planned for a left heart catheter tomorrow however he declined requested to be transferred to [place] weighs already established with the installation and service technician Dr Madsen. Patient would be admitted to the hospitalist service at [facility] Dr. Howard is the admitting hospitalist Qualifiers: Cardiomyopathy type: unspecified Qualified Code(s): I42.9 - Cardiomyopathy, unspecified (2) Acute respiratory failure with hypoxia Priority: Secondary Status: Acute Assessment and Plan: Patient denies any home use of oxygen therapy however noted to be requiring 4 L of nasal cannula oxygen chest x-ray does demonstrate pulm vascular congestion with trace bilateral pleural effusion s/p volume resuscitation for his elevated cpk. Improving since discontinuation of fluids work on weaning down oxygen therapy (3) Dysrhythmia Priority: Primary Status: Acute Assessment and Plan: On telemetry is normal sinus rhythm. During patient's emergency department visit he went into a wide complex tachycardia with a rate of 183. Cardiology was consulted because the first EKG did mention possible Jpyok-Tpzgrwsxa-Ghrat syndrome. Initially recommended to hold off on procainamide however this was still given as patient sustained in the 180s and was symptomatic. He did not have chest pain, but says that he did feel the palpitations. He is never had symptoms like this before. He will be observed in the ICU as this is the only unit that can administer the procainamide if needed. Continue cardiac telemetry Repeat troponin Cardiology consult, follow-up recommendations. May need to repeat procainamide if patient's dysrhythmia returns. Qualifiers: Arrhythmia type: ventricular tachycardia Qualified Code(s): I47.2 - Ventricular tachycardia (4) Mitral regurgitation Priority: Secondary Status: Acute Assessment and Plan: Noted on TTE, he has opted to be transferred to [facility] for further work up Qualifiers: Cardiac valve disease etiology: etiology unspecified Qualified Code(s): I34.0 - Nonrheumatic mitral (valve) insufficiency (5) Elevated creatine kinase Priority: Secondary Status: Acute Assessment and Plan: Likely secondary to sleeping on the floor. CK was 475 in the emergency department. He did receive 1 L of IV fluids, and was started on IV maintenance fluids. Had to discontinue IV fluids due to pulmonary vascular condition and patient requiring 4 L of fluids, oxygen, CPK trended down from 475-312 Continue to monitor creatine kinase (6) DVT prophylaxis Priority: Secondary Status: Acute Assessment and Plan: SCDs, and transferred to [facility] (7) COPD (chronic obstructive pulmonary disease) Priority: Secondary Status: Acute Assessment and Plan: Denies any formal diagnosis of COPD patient does appear to have COPD evident on chest x-ray, will need as needed DuoNeb and outpatient follow-up Qualifiers: COPD type: emphysema Emphysema type: unspecified Qualified Code(s): J43.9 - Emphysema, unspecified (8) Skin rash Priority: Secondary Status: Acute Assessment and Plan: Blanchable skin erythema to the chest in areas of where the defibrillator pads have been placed when he was in the emergency department. The erythema is not pruritic. On second review, the redness is improving and seems to be resolving without intervention. Continue to monitor Hospital course: Mr. mC is a 84 year old male was hospitalized for dizziness and lightheadedness. He was noted to have tachyarrhythmias while in the ED. He had a transthoracic echocardiogram which revealed EF 30-35% and severe mitral regurgitation. He was also ischemic workup with a planned left heart catheter tomorrow however patient declined requested to be transferred to [facility] where he is already established with a installation and service technician. Patient will be admitted to [facility] under the services of the hospitalist group. is the admission physician and Dr. Madsen's cardiology's will be consulted when he is at [facility] Discharge discussed with: patient, family, nurse, social work, case management, sap consultant - Time Spent with Patient Total time spent providing and/or coordinating discharge services: 40 mins Specific discharge activities: Please adhere to the treatment plan at [facility] - Discharge Medications Prescriptions: New Ipratropium/Albuterol Neb [Duoneb] 3 ml IH [id number] PRN inhsol PRN Reason: Shortness Of Breath/Wheezing Atorvastatin [Lipitor] 40 mg PO HS tablet Metoprolol [Lopressor] 12.5 mg PO BID tablet Aspirin 81 mg PO DAILY tab.chew Calcium Carbonate [Tums] 1,000 mg PO TID tab.chew Discontinued Carvedilol [Coreg] 6.25 mg PO BID PRN PRN Reason: Hypertension Home Medications: Aspirin 81 mg PO DAILY tab.chew 05/19/19 [Rx] Atorvastatin [Lipitor] 40 mg PO HS tablet 05/19/19 [Rx] Calcium Carbonate [Tums] 1,000 mg PO TID tab.chew 05/19/19 [Rx] Ipratropium/Albuterol Neb [Duoneb] 3 ml IH [id number] PRN inhsol 05/19/19 [Rx] Metoprolol [Lopressor] 12.5 mg PO BID tablet 05/19/19 [Rx] Allergies/Adverse Reactions: Allergy/AdvReac Type Severity Reaction Status Date / Time No Known Allergies Allergy Verified 05/17/19 21:00 Date of admission: 05/18/19 02:27 Primary care physician: PCP NONE Consults: 05/17/19 23:30 Consult to Cardiology [CONS] Stat Comment: Consulting Provider: Cardiology Delma Reason for Consult: tachycardic rhythm. Call Completed: Yes 05/19/19 13:27 Consult to Physical Therapy [CONS] Routine Comment: Evaluate, develop and implement POC Reason for Consult: Generalized weakness from home with son. Unsteady gait. Does patient have active BEDREST order?: No Is patient medically & hemodynamically stable?: Yes Discharging clinician: Ry Pedro - Constitutional Vitals: Temp Pulse Resp BP Pulse Ox 98.2 F 79 16 122/87 96 05/19/19 11:12 05/19/19 11:12 05/19/19 11:12 05/19/19 11:12 05/19/19 11:12 Exam: GEN: NAD, A&O x 3, Pleasant and conversant, son at his bedside SKIN: [place] warm acyanotic not jaundice HEART: RRR, grade 3/6 holosystolic murmur noted LUNGS: CTA no wheeze or crackles, overall non labored ABDOMEN; Soft, non tender or distended, BS x 4 normactive EXT: No LE edema, Pedal pulses 1+, radial pulses 2+ PSYCH: Mood and affect is appropriate - Patient Status Disposition: Transfer Short-Term Hosp Condition: Fair Functional capacity at discharge: independent ambulation Overall status at discharge: patient is progressing back to baseline - Discharge Instructions Instructions: Pacemaker (DC) Follow Up With: NONE,PCP [Primary Care Provider] - Forms: ED Satisfaction Letter - Diet and Activity Activity: as per physical therapy Diet: low fat, low cholesterol, low salt diet
--- NOTE | 2019-05-19 16:21 | Electrocardiograph Report ---
[address] [address] Test Date: 2019-05-17 Pat Name: Scotty Cm Department: EXAM4 Room: 2N0 Gender: M Health Information Technologist: : 1935 Requested By: Faby Sandoval Order Number: [id number] Reading MD: Jos Sanchez Measurements Intervals [place] Rate: 73 P: 66 [place]: 156 QRS: -46 QRSD: 114 T: 176 QT: 413 QTc: 456 Interpretive Statements Sinus rhythm IVCD Inferolateral T wave changes Electronically Signed On 05-19-2019 16:19:36 EDT by Jos Sanchez
--- NOTE | 2019-05-19 16:28 | Electrocardiograph Report ---
[place] [address] Test Date: 2019-05-18 Pat Name: Scotty Cm Department: EXAM4 Room: 2N0 Gender: M City Sanitarian: : 1935 Requested By: Renetta Campos Order Number: [id number] Reading MD: Jos Sanchez Measurements Intervals [place] Rate: 183 P: 0 [place]: 92 QRS: -72 QRSD: 135 T: 110 QT: 303 QTc: 529 Interpretive Statements Wide-QRS tachycardia RBBB and LAFB Electronically Signed On 05-19-2019 16:26:40 EDT by Jos Sanchez
[2019-05-20] MEDS ORDERED: Metoprolol XL (24 HR) Succ 25 MG TAB.ER.24H PO SCH (09:00)
[2019-05-20] MEDS ORDERED: Aspirin 81 MG TAB.CHEW PO SCH (09:00)
--- NOTE | 2019-05-21 08:41 | Electrocardiograph Report ---
[address] [place], [place] [address] Test Date: 2019-05-18 Pat Name: Scotty Cm Department: EXAM4 Room: 2NE30 Gender: M Sand Cutter Operator: : 1935 Requested By: Cory Mcdowell Order Number: [id number] Reading MD: Flaquito Castelan Measurements Intervals [place] Rate: 102 P: 75 CT: 171 QRS: -51 QRSD: 115 T: 131 QT: 312 QTc: 407 Interpretive Statements Sinus tachycardia Paired ventricular premature complexes Left anterior fascicular block Probable anterolateral infarct, age indeterm Abnormal T, consider ischemia, lateral leads Electronically Signed On 05-21-2019 8:40:01 EDT by Flaquito Castelan
--- NOTE | 2019-05-26 16:07 | Electrocardiograph Report ---
[address] [place], [place] [address] Test Date: 2019-05-18 Pat Name: Scotty Cm Department: 109 Room: 2NE30 Gender: M Metal Bonder: SEBAS : 1935 Requested By: Allyson Yoder Order Number: [id number] Reading MD: Ham Almeida Measurements Intervals [place] Rate: 84 P: 84 [place]: 171 QRS: -52 QRSD: 122 T: 130 QT: 375 QTc: 416 Interpretive Statements SINUS RHYTHM WITH FREQUENT VENTRICULAR PREMATURE COMPLEXES AND PACS LEFT ATRIAL ENLARGEMENT LEFT ANTERIOR FASCICULAR BLOCK ANTEROSEPTAL MYOCARDIAL INFARCTION, PROBABLY OLD ACUTE [place] Electronically Signed On 05-26-2019 16:05:17 EDT by Ham Almeida
== END 2019-05-19 17:10 | disposition short-term general hospital (02) ==
LOC: EMEROOARM 20:47 → ICNU 05-18 02:27 → INTOOBSV 05-18 02:27 → SUATTDRO 05-18 02:27 → ICNU 05-18 04:03 → 2NENU 05-18 12:49
PROVIDERS: ADMIT Pediatrics; ATTEND Pharmacist

== ENCOUNTER 2019-05-29 00:50 | Inpatient (IN) ==
[2019-05-29] MEDS ORDERED: 0.9 % Sodium Chloride 1,000 ML IVC ONE (01:08)
[2019-05-29 02:09] LABS: Basophils % 0.3 %; Eosinophils # 0.1 K/mcL (0.0-0.6); Eosinophils % 0.8 %; Hematocrit 27.3 % (37.5-50.1); Immature Granulocytes % 0.5 % (0-4); Lymphocytes # 1.4 K/mcL (0.6-4.6); Lymphocytes % 11.6 %; Mean Corpuscular Hemoglobin 32.8 pg (28.0-33.3); Mean Corpuscular Volume 99.6 fL (83.0-100.0); Monocytes % 8.7 %; Neutrophils # 9.3 K/mcL (1.6-8.9); Platelet Count 180 K/mcL (140-400); Red Blood Count 2.74 M/mcL (4.19-5.50); Red Cell Distribution Width 13.5 % (11.5-14.5); Segmented Neutrophils % 78.1 %; White Blood Count 11.9 K/mcL (4.3-11.1)
[2019-05-29] MEDS ORDERED: Pantoprazole 40 MG VIAL IVP ONE (02:09)
[2019-05-29 02:19] LABS: INR 1.2; Prothrombin Time 13.6 Seconds (9.4-12.1)
[2019-05-29 02:22] LABS: Activated Partial Thrombo Time 26.6 Seconds (26.0-36.0)
[2019-05-29 02:34] LABS: Alanine Aminotransferase 15 Units/L (7-52); Albumin 2.7 g/dL (3.5-5.7); Albumin/Globulin Ratio 1.2 (1.1-2.2); Alkaline Phosphatase 61 Units/L (34-104); Aspartate Amino Transferase 18 Units/L (13-39); BUN/Creatinine Ratio 29 (6-26); Bilirubin,Total 0.5 mg/dL (0.3-1.0); Blood Urea Nitrogen 29 mg/dL (8-23); Calcium 7.4 mg/dL (8.6-10.3); Carbon Dioxide 23 mEq/L (23-29); Chloride 111 mEq/L (98-107); Globulin 2.2 g/dL (2.4-3.5); Glucose 95 mg/dL (70-105); Lipase 97 Units/L (11-82); Osmolality,Calculated 296 (280-300); Potassium 3.9 mEq/L (3.5-5.1); Sodium 140 mEq/L (136-145); Total Protein 4.9 g/dL (6.4-8.9); Troponin I < 0.03 ng/mL (< 0.04); eGFR For African Americans > 60 (> 60); eGFR For Non-African Americans > 60 (> 60)
[2019-05-29] MEDS: Pantoprazole 40 MG in 0.9 % Sodium Chloride Mini Bag 100 ML IVC SCH ×4 (02:55→18:50)
[2019-05-29] MEDS ORDERED: 0.9 % Sodium Chloride 500 ML ONE (03:55)
[2019-05-29] MEDS ORDERED: Naloxone 0.4 MG/ML INJ IVP PRN (06:34)
[2019-05-29] MEDS ORDERED: Calcium Gluconate 2,000 MG in 0.9 % Sodium Chloride 100 ML IVPB ONE (07:10)
[2019-05-29 08:11] LABS: Magnesium 1.7 mg/dL (1.6-2.6)
[2019-05-29 08:50] LABS: Hematocrit 22.8 % (37.5-50.1); Hemoglobin 7.7 g/dL (12.9-16.9); Mean Corpuscular HGB Conc 33.8 g/dL (31.6-35.5); Mean Corpuscular Hemoglobin 33.2 pg (28.0-33.3); Mean Corpuscular Volume 98.3 fL (83.0-100.0); Mean Platelet Volume 11.5 fL (9.4-12.4); Platelet Count 142 K/mcL (140-400); Red Blood Count 2.32 M/mcL (4.19-5.50); Red Cell Distribution Width 13.4 % (11.5-14.5); White Blood Count 12.2 K/mcL (4.3-11.1)
[2019-05-29] MEDS ORDERED: 0.9 % Sodium Chloride 250 ML ONE ×2 (09:54→14:35)
[2019-05-29] MEDS ORDERED: 0.9 % Sodium Chloride 500 ML IV ONE (11:00)
[2019-05-29] MEDS ORDERED: Lidocaine -MPF 2% 2 ML VIAL ONE (12:08)
[2019-05-29] MEDS ORDERED: Propofol 500 MG/50 ML INFUS..BTL ONE (12:08)
[2019-05-29] MEDS ORDERED: *HR* Propofol 200 MG/20 ML VIAL IVP ONE (12:08)
[2019-05-29] MEDS ORDERED: EPHEDrine 50 MG/ML VIAL ONE (12:55)
[2019-05-29 15:00] LABS: Hematocrit 24.4 % (37.5-50.1); Hemoglobin 8.1 g/dL (12.9-16.9)
[2019-05-29] MEDS: Sucralfate 1 GM TABLET PO SCH ×2 (15:10→20:53)
[2019-05-29] MEDS: Pantoprazole 40 MG VIAL IVP SCH (18:52)
[2019-05-29] MEDS: *HR* Amiodarone 200 MG TABLET PO SCH (20:53)
[2019-05-29 20:56] LABS: Hematocrit 27.3 % (37.5-50.1)
[2019-05-30 02:38] LABS: Basophils # 0.1 K/mcL (0.0-0.2); Basophils % 0.4 %; Eosinophils # 0.3 K/mcL (0.0-0.6); Eosinophils % 2.5 %; Hematocrit 25.9 % (37.5-50.1); Hemoglobin 8.5 g/dL (12.9-16.9); Immature Granulocytes % 0.5 % (0-4); Lymphocytes # 1.9 K/mcL (0.6-4.6); Lymphocytes % 14.7 %; Mean Corpuscular HGB Conc 32.8 g/dL (31.6-35.5); Mean Corpuscular Hemoglobin 31.7 pg (28.0-33.3); Mean Corpuscular Volume 96.6 fL (83.0-100.0); Mean Platelet Volume 11.1 fL (9.4-12.4); Monocytes # 1.2 K/mcL (0.0-1.3); Monocytes % 9.5 %; Neutrophils # 9.1 K/mcL (1.6-8.9); Platelet Count 154 K/mcL (140-400); Red Blood Count 2.68 M/mcL (4.19-5.50); Red Cell Distribution Width 17.3 % (11.5-14.5); Segmented Neutrophils % 72.4 %; White Blood Count 12.6 K/mcL (4.3-11.1)
[2019-05-30 02:56] LABS: BUN/Creatinine Ratio 26 (6-26); Blood Urea Nitrogen 28 mg/dL (8-23); Calcium 8.2 mg/dL (8.6-10.3); Carbon Dioxide 27 mEq/L (23-29); Chloride 108 mEq/L (98-107); Glucose 110 mg/dL (70-105); Osmolality,Calculated 296 (280-300); Sodium 140 mEq/L (136-145); eGFR For African Americans > 60 (> 60); eGFR For Non-African Americans > 60 (> 60)
[2019-05-30] MEDS: Pantoprazole 40 MG VIAL IVP SCH ×2 (06:46→17:45)
[2019-05-30] MEDS: *HR* Amiodarone 200 MG TABLET PO SCH ×2 (09:08→21:14)
[2019-05-30] MEDS: Sucralfate 1 GM TABLET PO SCH ×4 (09:08→21:13)
[2019-05-30] MEDS ORDERED: Acetaminophen 325 MG TABLET PO PRN (23:19)
[2019-05-31 04:59] LABS: VBG Ionized Calcium 1.14 mmol/L (1.15-1.35)
[2019-05-31 04:59] LABS: Basophils # 0.1 K/mcL (0.0-0.2); Basophils % 0.5 %; Eosinophils # 0.3 K/mcL (0.0-0.6); Eosinophils % 2.3 %; Hematocrit 22.6 % (37.5-50.1); Hemoglobin 7.5 g/dL (12.9-16.9); Immature Granulocytes % 0.6 % (0-4); Lymphocytes # 1.5 K/mcL (0.6-4.6); Lymphocytes % 13.5 %; Mean Corpuscular HGB Conc 33.2 g/dL (31.6-35.5); Mean Corpuscular Hemoglobin 31.9 pg (28.0-33.3); Mean Corpuscular Volume 96.2 fL (83.0-100.0); Mean Platelet Volume 10.9 fL (9.4-12.4); Monocytes # 1.1 K/mcL (0.0-1.3); Monocytes % 9.8 %; Neutrophils # 8.1 K/mcL (1.6-8.9); Platelet Count 165 K/mcL (140-400); Red Blood Count 2.35 M/mcL (4.19-5.50); Red Cell Distribution Width 16.9 % (11.5-14.5); Segmented Neutrophils % 73.3 %
[2019-05-31 05:19] LABS: BUN/Creatinine Ratio 20 (6-26); Blood Urea Nitrogen 22 mg/dL (8-23); Calcium 7.9 mg/dL (8.6-10.3); Carbon Dioxide 27 mEq/L (23-29); Chloride 106 mEq/L (98-107); Glucose 102 mg/dL (70-105); Osmolality,Calculated 292 (280-300); Potassium 3.8 mEq/L (3.5-5.1); Sodium 139 mEq/L (136-145); eGFR For African Americans > 60 (> 60); eGFR For Non-African Americans > 60 (> 60)
[2019-05-31] MEDS: Pantoprazole 40 MG VIAL IVP SCH ×2 (06:09→17:35)
[2019-05-31] MEDS: Sucralfate 1 GM TABLET PO SCH ×4 (08:18→20:58)
[2019-05-31] MEDS: *HR* Amiodarone 200 MG TABLET PO SCH ×2 (08:18→20:58)
[2019-05-31 10:29] LABS: Hematocrit 24.5 % (37.5-50.1); Hemoglobin 7.9 g/dL (12.9-16.9)
[2019-05-31] MEDS ORDERED: Acetaminophen 325 MG TABLET PO PRN (13:18)
[2019-05-31 17:03] LABS: Hemoglobin 8.2 g/dL (12.9-16.9)
[2019-06-01 05:20] LABS: Basophils # 0.1 K/mcL (0.0-0.2); Basophils % 0.4 %; Eosinophils # 0.2 K/mcL (0.0-0.6); Hematocrit 26.3 % (37.5-50.1); Hemoglobin 8.5 g/dL (12.9-16.9); Immature Granulocytes % 0.5 % (0-4); Lymphocytes % 17.6 %; Mean Corpuscular HGB Conc 32.3 g/dL (31.6-35.5); Mean Corpuscular Hemoglobin 31.3 pg (28.0-33.3); Mean Corpuscular Volume 96.7 fL (83.0-100.0); Mean Platelet Volume 10.8 fL (9.4-12.4); Monocytes # 1.1 K/mcL (0.0-1.3); Monocytes % 9.4 %; Platelet Count 227 K/mcL (140-400); Red Blood Count 2.72 M/mcL (4.19-5.50); Red Cell Distribution Width 16.5 % (11.5-14.5); Segmented Neutrophils % 70.1 %; White Blood Count 11.4 K/mcL (4.3-11.1)
[2019-06-01 05:39] LABS: BUN/Creatinine Ratio 14 (6-26); Blood Urea Nitrogen 15 mg/dL (8-23); Calcium 8.3 mg/dL (8.6-10.3); Carbon Dioxide 28 mEq/L (23-29); Chloride 106 mEq/L (98-107); Glucose 96 mg/dL (70-105); Osmolality,Calculated 289 (280-300); Potassium 4.1 mEq/L (3.5-5.1); Sodium 139 mEq/L (136-145); eGFR For African Americans > 60 (> 60); eGFR For Non-African Americans > 60 (> 60)
[2019-06-01] MEDS: Pantoprazole 40 MG VIAL IVP SCH (06:04)
[2019-06-01] MEDS: Sucralfate 1 GM TABLET PO SCH ×4 (06:04→20:36)
[2019-06-01] MEDS: *HR* Amiodarone 200 MG TABLET PO SCH ×2 (07:29→20:36)
[2019-06-02 01:32] LABS: Basophils # 0.1 K/mcL (0.0-0.2); Basophils % 0.5 %; Eosinophils # 0.2 K/mcL (0.0-0.6); Eosinophils % 2.2 %; Hematocrit 24.1 % (37.5-50.1); Hemoglobin 8.2 g/dL (12.9-16.9); Immature Granulocytes % 0.4 % (0-4); Lymphocytes # 1.9 K/mcL (0.6-4.6); Lymphocytes % 20.1 %; Mean Corpuscular Hemoglobin 32.8 pg (28.0-33.3); Mean Corpuscular Volume 96.4 fL (83.0-100.0); Mean Platelet Volume 10.4 fL (9.4-12.4); Monocytes # 1.1 K/mcL (0.0-1.3); Monocytes % 11.9 %; Neutrophils # 6.3 K/mcL (1.6-8.9); Platelet Count 209 K/mcL (140-400); Red Cell Distribution Width 16.4 % (11.5-14.5); Segmented Neutrophils % 64.9 %; White Blood Count 9.6 K/mcL (4.3-11.1)
[2019-06-02] MEDS: Sucralfate 1 GM TABLET PO SCH ×2 (08:19→12:01)
[2019-06-02] MEDS: *HR* Amiodarone 200 MG TABLET PO SCH (08:19)
[2019-06-02] MEDS ORDERED: Metoprolol XL (24 HR) Succ 25 MG TAB.ER.24H PO SCH (09:00)
[2019-06-02 10:42] VITALS: BP 85/41
== END 2019-06-02 14:29 | DRG 378 ==
LOC: 3ANU 00:50 → EMEROOARM 00:50 → SUATTDRO 05:08 → 3ANU 05:34
PROVIDERS: ADMIT Family Medicine; ATTEND Internal Medicine

== ENCOUNTER 2019-07-03 01:13 | Observation (INO) ==
[2019-07-03] MEDS ORDERED: Isovue-370 500 ML BOTTLE IVP ONE (01:30)
[2019-07-03 02:07] LABS: Basophils # 0.1 K/mcL (0.0-0.2); Basophils % 0.5 %; Eosinophils # 0.1 K/mcL (0.0-0.6); Eosinophils % 0.5 %; Hematocrit 31.8 % (37.5-50.1); Hemoglobin 10.1 g/dL (12.9-16.9); Immature Granulocytes % 0.3 % (0-4); Immature Platelets 2.5 % (1.1-6.1); Lymphocytes # 1.2 K/mcL (0.6-4.6); Mean Corpuscular HGB Conc 31.8 g/dL (31.6-35.5); Mean Corpuscular Hemoglobin 29.9 pg (28.0-33.3); Mean Corpuscular Volume 94.1 fL (83.0-100.0); Mean Platelet Volume 10.3 fL (9.4-12.4); Monocytes # 1.3 K/mcL (0.0-1.3); Monocytes % 10.4 %; Neutrophils # 9.5 K/mcL (1.6-8.9); Platelet Count 230 K/mcL (140-400); Red Blood Count 3.38 M/mcL (4.19-5.50); Red Cell Distribution Width 15.1 % (11.5-14.5); Segmented Neutrophils % 78.3 %; White Blood Count 12.1 K/mcL (4.3-11.1)
[2019-07-03 02:21] LABS: BUN/Creatinine Ratio 21 (6-26); Blood Urea Nitrogen 28 mg/dL (8-23); Calcium 8.7 mg/dL (8.6-10.3); Carbon Dioxide 26 mEq/L (23-29); Chloride 105 mEq/L (98-107); Glucose 175 mg/dL (70-105); Osmolality,Calculated 294 (280-300); Potassium 4.3 mEq/L (3.5-5.1); Sodium 137 mEq/L (136-145); eGFR For African Americans > 60 (> 60); eGFR For Non-African Americans 50 (> 60)
[2019-07-03 02:24] LABS: Troponin I < 0.03 ng/mL (< 0.04)
[2019-07-03] MEDS ORDERED: Furosemide 40 MG/4 ML VIAL IVP ONE (03:16)
[2019-07-03] MEDS ORDERED: Acetaminophen 325 MG TABLET PO PRN (07:58)
[2019-07-03] MEDS ORDERED: Ondansetron 4 MG/2 ML VIAL IVP PRN (07:58)
[2019-07-03] MEDS ORDERED: Naloxone 0.4 MG/ML INJ IVP PRN (07:58)
[2019-07-03] MEDS ORDERED: Ipratropium/Albuterol Neb 3 ML IH PRN (08:01)
[2019-07-03] MEDS ORDERED: Furosemide 40 MG/4 ML VIAL IVP SCH (09:00)
[2019-07-03] MEDS: Sucralfate 1 GM TABLET PO SCH ×3 (11:30→21:22)
[2019-07-03] MEDS: *HR* Digoxin 0.125 MG TABLET PO SCH (11:30)
[2019-07-03] MEDS: Spironolactone 25 MG TABLET PO SCH (11:30)
[2019-07-03] MEDS: Furosemide 20 MG/2 ML VIAL IVP SCH (11:30)
[2019-07-03] MEDS: *HR* Heparin 5,000 UNIT/ML VIAL SQ SCH ×2 (14:16→21:22)
[2019-07-04] MEDS: *HR* Heparin 5,000 UNIT/ML VIAL SQ SCH ×3 (06:05→21:36)
[2019-07-04] MEDS: Sucralfate 1 GM TABLET PO SCH ×4 (06:05→21:36)
[2019-07-04 06:54] LABS: Basophils % 0.5 %; Eosinophils # 0.1 K/mcL (0.0-0.6); Eosinophils % 0.9 %; Hematocrit 29.2 % (37.5-50.1); Hemoglobin 9.2 g/dL (12.9-16.9); Immature Granulocytes % 0.4 % (0-4); Lymphocytes # 1.6 K/mcL (0.6-4.6); Lymphocytes % 19.3 %; Mean Corpuscular HGB Conc 31.5 g/dL (31.6-35.5); Mean Corpuscular Hemoglobin 29.2 pg (28.0-33.3); Mean Corpuscular Volume 92.7 fL (83.0-100.0); Mean Platelet Volume 10.7 fL (9.4-12.4); Monocytes % 12.8 %; Neutrophils # 5.3 K/mcL (1.6-8.9); Platelet Count 234 K/mcL (140-400); Red Blood Count 3.15 M/mcL (4.19-5.50); Red Cell Distribution Width 15.1 % (11.5-14.5); Segmented Neutrophils % 66.1 %; White Blood Count 8.1 K/mcL (4.3-11.1)
[2019-07-04 07:14] LABS: BUN/Creatinine Ratio 17 (6-26); Blood Urea Nitrogen 21 mg/dL (8-23); Calcium 8.3 mg/dL (8.6-10.3); Carbon Dioxide 31 mEq/L (23-29); Chloride 104 mEq/L (98-107); Glucose 84 mg/dL (70-105); Magnesium 1.9 mg/dL (1.6-2.6); Osmolality,Calculated 286 (280-300); Potassium 3.7 mEq/L (3.5-5.1); Sodium 137 mEq/L (136-145); eGFR For African Americans > 60 (> 60); eGFR For Non-African Americans 56 (> 60)
[2019-07-04 07:15] LABS: Transferrin 190 mg/dL (203-362)
[2019-07-04 07:24] LABS: Thyroid Stimulating Hormone 2.348 mcIU/mL (0.340-5.600)
[2019-07-04 07:29] LABS: Ferritin 64 ng/mL (20-250)
[2019-07-04 07:32] LABS: % Iron Saturation 6 % (20-55); Iron 15 mcg/dL (65-175)
[2019-07-04 07:35] LABS: Folate 13.6 ng/mL (3.0-16.0)
[2019-07-04] MEDS: Spironolactone 25 MG TABLET PO SCH (09:00)
[2019-07-04] MEDS: Aspirin Enteric Coated 81 MG Tablet PO SCH (09:00)
[2019-07-04] MEDS: *HR* Digoxin 0.125 MG TABLET PO SCH (09:00)
[2019-07-04] MEDS: Metoprolol XL (24 HR) Succ 25 MG TAB.ER.24H PO SCH (09:00)
[2019-07-04] MEDS: Furosemide 20 MG/2 ML VIAL IVP SCH (09:01)
[2019-07-05 05:32] LABS: Calcium 8.4 mg/dL (8.6-10.3); Potassium 3.8 mEq/L (3.5-5.1)
[2019-07-05 06:34] LABS: Hematocrit 31.2 % (37.5-50.1); Hemoglobin 9.9 g/dL (12.9-16.9); Mean Corpuscular HGB Conc 31.7 g/dL (31.6-35.5); Mean Corpuscular Hemoglobin 29.4 pg (28.0-33.3); Mean Corpuscular Volume 92.6 fL (83.0-100.0); Mean Platelet Volume 10.6 fL (9.4-12.4); Platelet Count 283 K/mcL (140-400); Red Blood Count 3.37 M/mcL (4.19-5.50); White Blood Count 7.6 K/mcL (4.3-11.1)
[2019-07-05] MEDS: Aspirin Enteric Coated 81 MG Tablet PO SCH (08:39)
[2019-07-05] MEDS: Metoprolol XL (24 HR) Succ 25 MG TAB.ER.24H PO SCH (08:39)
[2019-07-05] MEDS: *HR* Heparin 5,000 UNIT/ML VIAL SQ SCH ×3 (08:39→21:03)
[2019-07-05] MEDS: *HR* Digoxin 0.125 MG TABLET PO SCH (08:39)
[2019-07-05] MEDS: Spironolactone 25 MG TABLET PO SCH (08:39)
[2019-07-05] MEDS: Sucralfate 1 GM TABLET PO SCH ×4 (08:39→21:04)
[2019-07-06 04:46] LABS: Hematocrit 31.2 % (37.5-50.1); Hemoglobin 9.8 g/dL (12.9-16.9); Mean Corpuscular HGB Conc 31.4 g/dL (31.6-35.5); Mean Corpuscular Hemoglobin 29.5 pg (28.0-33.3); Platelet Count 274 K/mcL (140-400); Red Blood Count 3.32 M/mcL (4.19-5.50); Red Cell Distribution Width 14.8 % (11.5-14.5); White Blood Count 6.7 K/mcL (4.3-11.1)
[2019-07-06 05:04] LABS: BUN/Creatinine Ratio 18 (6-26); Blood Urea Nitrogen 24 mg/dL (8-23); Calcium 8.5 mg/dL (8.6-10.3); Carbon Dioxide 28 mEq/L (23-29); Chloride 103 mEq/L (98-107); Glucose 110 mg/dL (70-105); Osmolality,Calculated 293 (280-300); Potassium 4.4 mEq/L (3.5-5.1); Sodium 139 mEq/L (136-145); eGFR For African Americans > 60 (> 60); eGFR For Non-African Americans 50 (> 60)
[2019-07-06] MEDS: *HR* Heparin 5,000 UNIT/ML VIAL SQ SCH ×2 (05:49→16:07)
[2019-07-06] MEDS ORDERED: *HR* Amiodarone 200 MG TABLET PO SCH (09:00)
[2019-07-06] MEDS: Spironolactone 25 MG TABLET PO SCH (09:24)
[2019-07-06] MEDS: Metoprolol XL (24 HR) Succ 25 MG TAB.ER.24H PO SCH (09:24)
[2019-07-06] MEDS: Sucralfate 1 GM TABLET PO SCH ×3 (09:24→16:28)
[2019-07-06] MEDS: Aspirin Enteric Coated 81 MG Tablet PO SCH (09:24)
[2019-07-06] MEDS ORDERED: FLU Vac QV 19-20 (6Month+)/PF 0.5 ML SYRINGE IM ONE (09:36)
[2019-07-06] MEDS ORDERED: Lactulose Oral Soln 20 GM/30 ML UDC PO ONE (10:35)
[2019-07-06] MEDS ORDERED: Sennosides/Docusate Sodium TABLET PO PRN (13:23)
[2019-07-06] MEDS ORDERED: Milk and Molasses Enema 200 ML RC ONE (15:30)
[2019-07-06 15:37] VITALS: BP 111/63
== END 2019-07-06 17:28 | disposition home or self-care (01) ==
LOC: EMEROOARM 01:13 → 2ANU 01:13 → SUATTDRO 05:04 → 2ANU 05:34
PROVIDERS: ADMIT Pharmacist; ATTEND Family Medicine